=== PATIENT | male | born 1940 ===

== ENCOUNTER 2020-03-17 06:00 | Outpatient (RCR) | payer MEDICARE, SELFPAY | END 2020-03-22 23:59 | disposition home or self-care (01) | LOC: GPT 06:00 | PROVIDERS: Family Provider Family Medicine; PCP Family Medicine; Referring Provider Physician Assistant; Visit Provider Physician Assistant | DX: M17.12 Unilateral primary osteoarthritis, left knee (principal); R29.898 Other symptoms and signs involving the musculoskeletal system | CPT/HCPCS: 97032; 97110; 97161; 97530 ==

== ENCOUNTER 2020-03-23 06:00 | Outpatient (RCR) | payer MEDICARE, SELFPAY | END 2020-04-19 23:59 | disposition home or self-care (01) | LOC: GPT 06:00 | PROVIDERS: Family Provider Family Medicine; PCP Family Medicine; Referring Provider Physician Assistant; Visit Provider Physician Assistant | DX: M17.12 Unilateral primary osteoarthritis, left knee (principal); R29.898 Other symptoms and signs involving the musculoskeletal system | CPT/HCPCS: 97032; 97110; 97112; 97164; 97530 ==

== ENCOUNTER 2020-04-20 06:00 | Outpatient (RCR) | payer MEDICARE, SELFPAY | END 2020-05-20 23:59 | disposition home or self-care (01) | LOC: GPT 06:00 | PROVIDERS: Family Provider Family Medicine; PCP Family Medicine; Referring Provider Physician Assistant; Visit Provider Physician Assistant | DX: M17.12 Unilateral primary osteoarthritis, left knee (principal); R29.898 Other symptoms and signs involving the musculoskeletal system | CPT/HCPCS: 97032; 97110; 97112; 97140; 97530 ==

== ENCOUNTER 2022-10-14 06:00 | Outpatient (RCR) | payer MEDICARE, SELFPAY | END 2022-10-20 23:59 | disposition home or self-care (01) | LOC: GPT 06:00 | PROVIDERS: Visit Provider Orthopaedic Surgery | DX: Z47.1 Aftercare following joint replacement surgery (principal); Z96.652 Presence of left artificial knee joint | CPT/HCPCS: 97032; 97110; 97140; 97162 ==

== ENCOUNTER 2022-10-21 06:00 | Outpatient (RCR) | payer MEDICARE, SELFPAY | END 2022-11-19 23:59 | disposition home or self-care (01) | LOC: GPT 06:00 | PROVIDERS: Visit Provider Orthopaedic Surgery | DX: Z47.1 Aftercare following joint replacement surgery (principal); Z96.652 Presence of left artificial knee joint | CPT/HCPCS: 97110; 97112; 97140; 97530 ==

== ENCOUNTER 2022-11-20 06:00 | Outpatient (RCR) | payer MEDICARE, SELFPAY | END 2022-12-20 23:59 | disposition home or self-care (01) | LOC: GPT 06:00 | PROVIDERS: Visit Provider Orthopaedic Surgery | DX: Z96.652 Presence of left artificial knee joint (principal) | CPT/HCPCS: 97032; 97110; 97140; 97164 ==

== ENCOUNTER 2022-12-21 06:00 | Outpatient (RCR) | payer MEDICARE, SELFPAY | END 2023-01-19 23:59 | disposition home or self-care (01) | LOC: GPT 06:00 | PROVIDERS: Visit Provider Orthopaedic Surgery | DX: Z47.1 Aftercare following joint replacement surgery (principal); Z96.652 Presence of left artificial knee joint | CPT/HCPCS: 97032; 97110; 97140; 97164; 97530 ==

== ENCOUNTER 2023-01-20 06:00 | Outpatient (RCR) | payer MEDICARE, SELFPAY | END 2023-02-19 23:59 | disposition home or self-care (01) | LOC: GPT 06:00 | PROVIDERS: Visit Provider Orthopaedic Surgery | DX: Z47.1 Aftercare following joint replacement surgery (principal); Z96.652 Presence of left artificial knee joint | CPT/HCPCS: 97110; 97112; 97140 ==

== ENCOUNTER 2023-02-20 06:00 | Outpatient (RCR) | payer MEDICARE, SELFPAY | END 2023-03-10 23:59 | disposition home or self-care (01) | LOC: GPT 06:00 | PROVIDERS: Visit Provider Orthopaedic Surgery | DX: Z47.1 Aftercare following joint replacement surgery (principal); Z96.652 Presence of left artificial knee joint | CPT/HCPCS: 97110; 97140; 97164; 97530 ==